=== PATIENT | male | born 1960 | race Caucasian/White ===

== ENCOUNTER → 2020-07-17 | Outpatient (CLI) | payer OTHER ==
[~2020-07-17] MED LIST: AZEL137S3 NS; CELE200C PO; GLUC1CAP41 PO; METF-658 PO; METF100010 PO; OXYC1TAB15 PO
== END | disposition home or self-care (01) ==
LOC: LAB 14:14
PROVIDERS: ATTEND Surgery
DX: Z20.828 Contact with and (suspected) exposure to other viral communicable diseases (principal)
CPT/HCPCS: U0003-CS

== ENCOUNTER → 2020-07-23 | Day surgery (SDC) | payer OTHER ==
[~2020-07-23] VITALS: Ht 182.9 cm; Wt 107.5 kg
[~2020-07-23] MED LIST changes: +ACETAMINOPHEN 500 MG TABLET PO PRN; +BUPIVACAINE-EPI 0.5%-1:200000 MPF 30 ML VIAL. ONE; +DEXAMETHASONE SOD PHOS 20 MG/5 ML VIAL. ONE; +GLYCOPYRROLATE 1 MG/5 ML VIAL. ONE; +HYDROmorphone 2 MG/ML VIAL IV PRN; +INSULIN LISPRO 100 UNIT/ML 3ML VIAL for OP,RR ONLY. SQ ONE; +LIDOCAINE 2% PF 5 ML VIAL. ONE; +MIDAZOLAM HCL/PF 2 MG/2 ML VIAL. ONE; +MINERAL OIL for SURGERY 10 ML VIAL. MC ONE; +MORPHINE SULFATE 2 MG/ML VIAL. IV PRN; +NEOSTIGMINE METHYLSULFATE 5 MG/5 ML SYRINGE. ONE; +ONDANSETRON PF 4 MG/2 ML VIAL. IV PRN; +ONDANSETRON PF 4 MG/2 ML VIAL. ONE; +PROCHLORPERAZINE 10 MG/2 ML VIAL. IV PRN; +PROPOFOL 10 MG/ML (20ML) VIAL. IV ONE; +ROCURONIUM 50 MG/5 ML VIAL. ONE; +SEVOFLURANE 61 TO 120 MINUTES. IH ONE; +fentaNYL PF VIAL 100 MCG/2 ML VIAL IV PRN; +fentaNYL PF VIAL 250 MCG/5 ML VIAL ONE; +oxyCODONE/APAP 5/325 1 TAB TABLET PO ONE
[2020-07-23] MEDS: IV RINGERS,LACTATED 1000ML 1,000 ML IV SCH ×2 (07:33→10:39)
[2020-07-23] MEDS: INSULIN LISPRO 100 UNIT/ML 3ML VIAL for OP,RR ONLY. SQ PRN ×2 (07:43→10:11)
--- NOTE | 2020-07-23 09:55 | PDOC4 ---
Operative Note Operative Note Date: 07/23/2020 at 952 Preoperative diagnosis: Incarcerated umbilical hernia Postoperative diagnosis: Same Procedure: Robotic assisted laparoscopic umbilical hernia repair with mesh Surgeon: Vikas Specimen: None Dictation: Patient is 60-year-old gentleman is complained of a painful bulge at his umbilicus. The procedure of robotic assisted laparoscopic umbilical hernia repair with mesh was explained to the patient detail risk benefits were also discussed including bleeding infection injury to intra-abdominal contents possible necessitating further open operations. Patient seemed understand and gave both verbal and written consent to have the procedure performed. Patient was taken to the operating room placed in the supine position general anesthesia was initiated once patient was sleeping intubated his abdomen was prepped and draped usual sterile fashion using ChloraPrep. Area in the left upper quadrant was injected quarter percent Marcaine with epinephrine incision was made with a blade scalpel and a varies needle was placed within the abdomen creating pneumoperitoneum once this was complete a millimeter da Delmy port was placed in the da Delmy camera was placed within the abdomen which was inspected it was noted that the umbilical hernia was visualized and there was incarcerated omentum. A 8 mm da Delmy port was placed in the left midabdomen and an 8 mm da Delmy ports placed in the left lower abdomen. The da Delmy robot was brought and docked all port sites surgeon went to the robotic console using a grasper and Endo Tyson scissors the hernia contents were reduced and the hernia sac reduced. The fascial defect was then closed with a running 2 OV lock nonabsorbable suture a ventral light ST mesh was then placed over the hernia defect this was sewn into place with the 2 OV lock nonabsorbable suture and then the peritoneum was closed over the mesh with a 2 OV lock absorbable suture. Once this complete the robot was undocked all port sites the pneumoperitoneum was reduced all ports were removed the port sites were all closed with 4 subcuticular Monocryl Mastisol Steri-Strips and island dressings were applied. Patient was awakened and extubated in operating room taken to recovery in stable condition all sponge instrument needle counts listed as correct estimated blood loss 20 mL. LAURA KERNS MD Jul 23, 2020 09:55
--- NOTE | 2020-07-23 09:56 | DISCH ---
DISCHARGE INSTRUCTIONS Condition on Discharge Condition on Discharge: Stable Activity After Discharge Activity Instructions for Disc: Avoid exertion Other activity instructions: No lifting more than 20 pounds for 2 weeks Diet after Discharge Diet after Discharge: Regular Wound Incision Care Other wound/incision instructi: May shower in 24 hours Contacting the after DC Call your doctor for: If your condition worsens Follow-Up Follow up with: Follow-up Dr. Kerns in 2 weeks LAURA KERNS MD Jul 23, 2020 09:56
[2020-07-23 11:12] VITALS: BP 138/81
== END | disposition home or self-care (01) ==
LOC: SURG 07:03 → EDUNIT# 10:00
PROVIDERS: ATTEND Surgery
DX: K42.0 Umbilical hernia with obstruction, without gangrene (principal); Z79.899 Other long term (current) drug therapy
CPT/HCPCS: 49653; 82962; A7015; C1781; J0690; J1100; J1815; J2250; J2405; J2704; J2710; J3010; J3490; S2900; J7120